=== PATIENT | female | born 1940 | race Caucasian/White ===

== ENCOUNTER 2017-05-27 14:30 | Emergency (ER) | payer MEDICARE ==
[~2017-05-27] VITALS: Ht 167.6 cm; Wt 42.5 kg
[~2017-05-27 14:30] MED LIST: ADVAI500I PO; ALBU0.086 INH; CYAN1000P IM; ERGO50000 PO; GABA300 PO; IPRA0.02 INH; METO25 PO; OXYC-68 PO
[2017-05-27 14:38] VITALS: BP 126/57; PULSE 77; RESP 16; TEMP 97.8; O2SAT 89
[2017-05-27] MEDS ORDERED: NEUR300C PO (14:53)
[2017-05-27] MEDS ORDERED: OXYC1TAB63 PO (14:53)
[2017-05-27] MEDS ORDERED: ADVA500A INH (14:57)
[2017-05-27] MEDS ORDERED: VENTAER INH (14:57)
[2017-05-27] MEDS ORDERED: METO25TA3 PO (14:57)
[2017-05-27] MEDS ORDERED: IPRASOL INH (14:57)
--- NOTE | 2017-05-27 14:57 | PD ---
HPI Chief Complaint: Injury Time Seen by Provider: 14:45 Travel History International Travel<30 days: No Contact w/Intl Traveler<30days: No Traveled to known affect area: No History of Present Illness HPI The patient was seen and examined in the presence of the nurse. This patient complains of injury to her right knee. She was doing some gardening and lost her balance and twisted her right knee. She heard a pop. She did not fall onto it. No direct trauma to the knee. She has some mild discomfort when putting weight on it. Duration 2 hours PFSH Past Medical History Arthritis: No Blood Disorders: No Cancer: No Cardiovascular Problems: No Chemotherapy: No Congestive Heart Failure: Yes COPD: Yes Diabetes: No Diminished Hearing: No Endocrine: No Genitourinary: No Headaches: Yes Hepatitis: No Hiatal Hernia: No Immune Disorder: No Musculoskeletal: Yes (ARTHRITIS) Neurologic: No Psychiatric: No Reproductive: No Respiratory: Yes (copd oxygen use ) Radiation Therapy: No Thyroid Disease: No ?: Not Menopausal: Yes Past Surgical History Abdominal Surgery: Yes (APPEND.,) AICD: No Appendectomy: Yes Arteriovenous Shunt: No Cardiac Surgery: No Ear Surgery: No Endocrine Surgery: No Eye Surgery: No Genitourinary Surgery: No Gynecologic Surgery: Yes (HYSTERECTOMY,) Hysterectomy: Yes Insulin Pump: No Joint Replacement: Yes (RIGHT HIP, LEFT KNEE) Oral Surgery: No Pacemaker: No Thoracic Surgery: No Other Surgery: Yes Social History Alcohol Use: No Tobacco Use: Yes (09/25 PPD) Substance Use: No Allergies-Medications (Allergen,Severity, Reaction): Coded Allergies: latex (Unverified Allergy, Severe, Swelling, 05/27/17) lorazepam (Unverified Allergy, Intermediate, 05/27/17) AGITATION adhesive (Unverified Allergy, Unknown, 05/27/17) alprazolam (Unverified Adverse Reaction, Severe, Swelling, 05/27/17) aspirin (Unverified Adverse Reaction, Severe, Irritability/Anxiety, 05/27/17 ) Reported Meds & Prescriptions Reported Meds & Active Scripts Active Review of Systems General / Constitutional: No: Fever HENT: No: Headaches Cardiovascular: No: Chest Pain or Discomfort Physical Exam Narrative SKIN: Focused skin assessment reveals no rash or ulcers. Skin is warm and dry. Palpation shows no induration or nodules. Psych: Normal mood and affect. Normal insight and judgment. Right knee: No effusion or tenderness or bruising or swelling. Good range of motion of joints. Data Data Last Documented VS Vital Signs Date Time Temp Pulse Resp B/P (MAP) Pulse Ox O2 Delivery O2 Flow Rate FiO2 05/27/17 14:38 97.8 77 16 126/57 (80) 89 MDM Medical Decision Making Medical Screen Exam Complete: Yes Emergency Medical Condition: Yes Medical Record Reviewed: Yes Differential Diagnosis Dislocation, contusion, strain Narrative Course I have reviewed the patient's electronic medical record. Presentation is consistent with an acute right knee soft tissue injury. Recommend ice and elevation and limit weightbearing and follow-up with orthopedist There are no objective findings on exam Diagnosis Primary Impression: Soft tissue injury of right knee Qualified Codes: S89.91XA - Unspecified injury of right lower leg, initial encounter Additional Instructions: The patient was advised to follow up with their physician and return if they worsen. Ice and elevate right knee and limit weightbearing Med/Other Pt SpecificInfo: Other Disposition: 01 DISCHARGE HOME Condition: Stable Shant Townsend MD May 27, 2017 14:57
== END 2017-05-27 16:04 | disposition home or self-care (01) ==
LOC: PHED 14:30
DX: S89.91XA Unspecified injury of right lower leg, initial encounter (principal); X58.XXXA Exposure to other specified factors, initial encounter; I50.9 Heart failure, unspecified; J44.9 Chronic obstructive pulmonary disease, unspecified; M19.90 Unspecified osteoarthritis, unspecified site
CPT/HCPCS: 99283